=== PATIENT | female | born 1985 | race Two or more races ===

== ENCOUNTER 2018-06-02 11:36 | Emergency (ER) | payer BC ==
--- NOTE | 2018-06-02 11:53 | EDM.PDOC ---
ED HPI GENERAL MEDICAL PROBLEM - General Chief Complaint: General Stated Complaint: PERSONAL PROBLEM Time Seen by Provider: 06/02/18 11:46 Source of Information: Reports: Patient History Limitations: Reports: No Limitations - History of Present Illness INITIAL COMMENTS - FREE TEXT/NARRATIVE: HISTORY AND PHYSICAL: History of present illness: Patient is a 32-year-old female who presents to the emergency room with complaints of right pain. She states she has had hemorrhoids in the past which she has noticed her bowel movements have not been painful and resolved on her own. The right has been causing increased pain with standing and weightbearing and has been ongoing for 3-4 days. She denies any fever, chills, chest pain, shortness of breath or cough. Abdominal pain, nausea, vomiting, diarrhea or constipation. No changes in her bowel pattern or blood in her stools. Review of systems: As per history of present illness and below otherwise all systems reviewed and negative. Past medical history: As per history of present illness and as reviewed below otherwise noncontributory. Surgical history: As per history of present illness and as reviewed below otherwise noncontributory. Social history: No reported history of drug or alcohol abuse. Family history: As per history of present illness and as reviewed below otherwise noncontributory. Physical exam: General: Well-developed and well-nourished 32-year-old female. Nontoxic appearing and in no acute distress. HEENT: Atraumatic, normocephalic, pupils equal and reactive bilaterally, negative for conjunctival pallor or scleral icterus, mucous membranes moist, throat clear, neck supple, nontender, trachea midline. No drooling or trismus noted. No meningeal signs Lungs: Clear to auscultation, breath sounds equal bilaterally, chest nontender. Heart: S1S2, regular rate and rhythm without overt murmur Abdomen: Soft, nondistended, nontender. Negative for masses or hepatosplenomegaly. Negative for costovertebral tenderness. Pelvis: Stable nontender. Genitourinary: Deferred. Rectal: Good rectal tone. External hemorrhoid noted at the 6 o'clock position, approximately 7mm in diameter. Tender to touch Skin: Intact, warm, dry. No lesions or rashes noted. Extremities: Atraumatic, negative for cords or calf pain. Neurovascular unremarkable. Neuro: Awake, alert, oriented. Cranial nerves II through XII unremarkable. Cerebellum unremarkable. Motor and sensory unremarkable throughout. Exam nonfocal. Notes: Area was cleansed with betadine swabs before lidocaine 1% was used to anesthetize the area. One mL was used, patient tolerated well. A small clot was expressed from the thrombosed hemorrhoid. Patient did have relief with this. This. She voices understanding and is agreeable to plan of care. Further questions or concerns at this time. Diagnostics: [employer]: Lidocaine with Epi Prescription: Anusol Cream Impression: Thrombosed Hemorrhoid Plan: 1. Please take a stool softener to avoid straining with bowel movements. Use a donut cut out for comfort while sitting. 2. Tylenol and/or ibuprofen as needed for pain management. Epsom salt soaks 1-2 x daily. 3. Take the anusol as prescribed. 4. Please follow up with the general surgeon for further care next week. Return to the ED as needed and as discussed. Definitive disposition and diagnosis as appropriate pending reevaluation and review of above. Duration: Day(s): Rectal Pain Score (Numeric/FACES): 6 - Related Data Allergies Allergy/AdvReac Type Severity Reaction Status Date / Time Penicillins Allergy Rash Verified 06/02/18 11:57 Home Meds: Home Meds Hydrocortisone [Anusol-HC] 30 gm RC QID #1 cream..g. 06/02/18 [Rx] predniSONE [Prednisone] 1 tab PO DAILY 06/02/18 [History] ED ROS GENERAL - Review of Systems Review Of Systems: ROS reveals no pertinent complaints other than HPI. ED EXAM, GENERAL - Physical Exam Exam: See Below (SEe dictation) Course - Vital Signs Last Recorded V/S: Last Vital Signs Temp 98.1 F 06/02/18 11:53 Pulse 64 06/02/18 11:53 Resp 18 06/02/18 11:53 BP 132/76 06/02/18 11:53 Pulse Ox 99 06/02/18 11:53 - Orders/Labs/Meds Meds: Medications Discontinued Medications Generic Name Dose Route Start Last Admin Trade Name Freq PRN Reason Stop Dose Admin Lidocaine HCl 5 ml 06/02/18 12:03 06/02/18 12:19 Xylocaine-Mpf 1% INJECT 06/02/18 12:04 Not Given ONETIME ONE Lidocaine/Epinephrine 10 ml 06/02/18 12:08 06/02/18 12:19 Xylocaine 1% With Epinephrine 1:100,000 INJECT 06/02/18 12:09 Not Given ONETIME ONE Lidocaine/Epinephrine 20 ml 06/02/18 12:14 06/02/18 12:19 Xylocaine 1% With Epinephrine 1:100,000 INJECT 06/02/18 12:15 20 ml ONETIME ONE Administration Lidocaine/Epinephrine Confirm 06/02/18 12:14 06/02/18 12:19 Xylocaine 1% With Epinephrine 1:100,000 Administered 06/02/18 12:15 Not Given Dose 20 ml .ROUTE .STK-MED ONE Departure - Departure Time of Disposition: 12:32 Disposition: Home, Self-Care 01 Clinical Impression: Hemorrhoid thrombosis - Discharge Information Prescriptions: Hydrocortisone [Anusol-HC] 30 gm RC QID #1 cream..g. Instructions: Hemorrhoids, [id number] Referrals: PCP,None [Primary Care Provider] - Forms: ED Department Discharge Additional Instructions: The following information is given to patients seen in the emergency department who are being discharged to home. This information is to outline your options for follow-up care. We provide all patients seen in our emergency department with a follow-up referral. The need for follow-up, as well as the timing and circumstances, are variable depending upon the specifics of your emergency department visit. If you don't have a primary care physician on staff, we will provide you with a referral. We always advise you to contact your personal physician following an emergency department visit to inform them of the circumstance of the visit and for follow-up with them and/or the need for any referrals to a consulting specialist. The emergency department will also refer you to a specialist when appropriate. This referral assures that you have the opportunity for follow-up care with a specialist. All of these measure are taken in an effort to provide you with optimal care, which includes your follow-up. Under all circumstances we always encourage you to contact your private physician who remains a resource for coordinating your care. When calling for follow-up care, please make the office aware that this follow-up is from your recent emergency room visit. If for any reason you are refused follow-up, please contact the [facility] Emergency Department at and asked to speak to the emergency department charge nurse. ASHLEY [facility] [address], [place] [address] [facility] Specialty Care - General Surgery Professional Building [address] [place] [address], [address] [place] [address] 1. Please take a stool softener to avoid straining with bowel movements. Use a donut cut out for comfort while sitting. 2. Tylenol and/or ibuprofen as needed for pain management. Epsom salt soaks 1-2 x daily. 3. Take the Anusol as prescribed. 4. Please follow up with the general surgeon for further care next week. Return to the ED as needed and as discussed.
[2018-06-02] MEDS ORDERED: Lidocaine 1% with EPINEPHrine 1:100,000 10 ML MDV INJECT ONE (12:08)
[2018-06-02] MEDS ORDERED: Lidocaine 1% with EPINEPHrine 1:100,000 20 ML MDV ONE (12:14)
[2018-06-02] MEDS ORDERED: Lidocaine 1% with EPINEPHrine 1:100,000 20 ML MDV INJECT ONE (12:14)
== END 2018-06-02 12:36 | disposition home or self-care (01) ==
LOC: MW.ED 11:36
DX: K64.5 Perianal venous thrombosis (principal); Z88.0 Allergy status to penicillin; Z79.899 Other long term (current) drug therapy
CPT/HCPCS: 99282